=== PATIENT | female | born 2000 ===

== ENCOUNTER 2025-02-18 06:00 | Inpatient (IN) | payer OTHER ==
[~2025-02-18 06:00] MED LIST: PROZAC20 MG PO
[2025-02-18] MEDS ORDERED: CEFAZOLIN SODIUM 1,000 MG VIAL ONE ×2 (07:38→09:08)
[2025-02-18] MEDS ORDERED: POVIDONE-IODINE 118 ML BOTT TOP ONE (11:00)
[2025-02-18] MEDS ORDERED: THROMBIN,HU/FIBRINOGEN/CALCIUM 10 ML SYRINGE TOP ONE ×2 (11:31→11:45)
[2025-02-18] MEDS ORDERED: VISTASEAL DUAL APPICATOR 1 EACH APPL TOP ONE ×2 (11:31→11:45)
[2025-02-18] MEDS ORDERED: SUGAMMADEX SODIUM 200 MG/2 ML VIAL IV ONE (12:27)
[2025-02-18] MEDS ORDERED: KETOROLAC TROMETHAMINE 30 MG VIAL IV ONE (12:45)
[2025-02-18] MEDS ORDERED: ONDANSETRON HCL 2 MG/ML VIAL IV ONE (13:00)
[2025-02-18] MEDS ORDERED: KETOROLAC TROMETHAMINE 30 MG VIAL ONE (15:20)
[2025-02-18 15:49] LABS: BASO % 0.1 % (0.1-1.2); EOS # 0.00 (0.04-0.54); EOS % 0.0 % (0.7-7.0); LYMPH # 0.92 (1.18-3.74); LYMPH % 4.3 % (19.3-53.1); MEAN PLATELET VOLUME 10.10 fl (9.4-12.4); MONO # 1.09 (0.24-0.82); MONO % 5.0 % (4.7-12.5); NEUT # 19.47 (1.56-6.13); NEUT % 90.1 % (34.0-71.1); RED CELL DISTRIBUTION WIDTH 12.6 % (11.6-14.4)
[2025-02-18 18:58] LABS: BASO % 0.2 % (0.1-1.2); EOS # 0.00 (0.04-0.54); EOS % 0.0 % (0.7-7.0); LYMPH # 0.53 (1.18-3.74); LYMPH % 2.1 % (19.3-53.1); MEAN PLATELET VOLUME 10.50 fl (9.4-12.4); MONO # 1.66 (0.24-0.82); MONO % 6.6 % (4.7-12.5); NEUT # 22.88 (1.56-6.13); NEUT % 90.5 % (34.0-71.1); RED CELL DISTRIBUTION WIDTH 12.6 % (11.6-14.4)
[2025-02-18] MEDS ORDERED: CELECOXIB 200 MG CAPSULE PO SCH (23:04)
[2025-02-18] MEDS ORDERED: GABAPENTIN 100 MG CAPSULE PO SCH (23:04)
[2025-02-18 23:11] VITALS: BP 107/69
[2025-02-19] MEDS ORDERED: ACETAMINOPHEN 650 MG SUPP.RECT RECTAL SCH
[2025-02-19] MEDS ORDERED: ACETAMINOPHEN 325 MG TABLET PO SCH (00:03)
[2025-02-19 06:43] LABS: BASO % 0.3 % (0.1-1.2); EOS # 0.03 (0.04-0.54); EOS % 0.2 % (0.7-7.0); LYMPH # 1.25 (1.18-3.74); LYMPH % 8.3 % (19.3-53.1); MEAN PLATELET VOLUME 10.80 fl (9.4-12.4); MONO # 1.30 (0.24-0.82); MONO % 8.7 % (4.7-12.5); NEUT # 12.33 (1.56-6.13); NEUT % 82.1 % (34.0-71.1); RED CELL DISTRIBUTION WIDTH 12.8 % (11.6-14.4)
[2025-02-19 08:12] VITALS: BP 107/67
== END 2025-02-19 09:40 | disposition home or self-care (01) | DRG 743 ==
LOC: CIR.AMB 06:00 → OB/GYN 19:15
PROVIDERS: ADMIT Obstetrics & Gynecology Gynecology; ATTEND Obstetrics & Gynecology Gynecology
PROC: 0UB14ZZ Excision of Left Ovary, Percutaneous Endoscopic Approach (ICD-10-PCS; principal; 2025-02-18 15:00)
DX: D27.1 Benign neoplasm of left ovary (principal)